=== PATIENT | female | born 1950 | race Two or more races ===

== ENCOUNTER 2022-11-10 06:14 | Inpatient (IN) | payer BC ==
[~2022-11-10] VITALS: Ht 165.1 cm; Wt 71.9 kg
[~2022-11-10 06:14] MED LIST: ATO40T PO; CARV3.1240 PO; FLUT100I IN; GABA400C PO; HYDR25TA4 PO; LOSA-39 PO; MECL12.514 PO; METF-489 PO; TRAM50TA2 PO
[2022-11-10] MEDS ORDERED: ceFAZolin 1GM/50ML 100 ML IV ONE (06:49)
[2022-11-10] MEDS ORDERED: fentaNYL CITRATE 100 MCG/2 ML VL ONE ×2 (07:30→09:07)
[2022-11-10] MEDS ORDERED: DexmedeTOMIDine 200 MCG in D5W 5% 48 ML IV SCH (07:30)
[2022-11-10] MEDS ORDERED: MIDAZOLAM HCL 2MG/2ML 2ml VIAL (1mg/ml) ONE (07:30)
[2022-11-10] MEDS ORDERED: fentaNYL CITRATE 10 ML ONE (07:31)
[2022-11-10] MEDS ORDERED: LIDOCAINE 2%HCL (LOCAL ANESTH.) INJ 10ml MDV ONE (07:32)
[2022-11-10] MEDS ORDERED: LIDOCAINE HCL (LOCAL ANESTH.) 0.5 % 50ML MDV IJ ONE (07:51)
[2022-11-10] MEDS ORDERED: MORPHINE SULF PF 5 MG/10 ML VIAL ONE (09:39)
[2022-11-10] MEDS ORDERED: HYDROmorphone HCL 2 MG/ML VL/or syr ONE (09:40)
[2022-11-10] MEDS ORDERED: LABETALOL HCL 5 MG/ML ML 20ML VIAL IV ONE (09:57)
[2022-11-10] MEDS ORDERED: NALOXONE HCL 0.4 MG/ML VIAL ONE (11:11)
[2022-11-10] MEDS ORDERED: ONDANSETRON HCL 4 MG/2 ML VIAL IV PRN ×2 (11:15→11:45)
[2022-11-10] MEDS ORDERED: HYDROcodone-ACET 10/325MG TAB PO PRN (11:15)
[2022-11-10] MEDS ORDERED: ceFAZolin 1GM/50ML 50 ML IV SCH (11:15)
[2022-11-10] MEDS ORDERED: MILK OF MAGNESIA 30ML SUSP PO PRN (11:15)
[2022-11-10] MEDS ORDERED: DOCUSATE SOD 100 MG CAP PO PRN (11:15)
[2022-11-10] MEDS ORDERED: HYDROmorphone HCL 2 MG/ML VL/or syr IV PRN ×2 (11:45)
[2022-11-10] MEDS ORDERED: HYDROmorphone HCL 2 MG/ML VL/or syr IV ONE ×3 (11:56→12:16)
[2022-11-10] MEDS ORDERED: NITROGLYCERIN 0.4 MG SL TAB SL PRN (12:15)
[2022-11-10] MEDS ORDERED: MORPHINE SULFATE INJ 2 MG/ml SYRG IV PRN (12:15)
[2022-11-10] MEDS: ceFAZolin 1GM/50ML 50 ML IV SCH ×2 (15:28→22:37)
[2022-11-10 17:00] VITALS: BP 147/72
[2022-11-10 17:30] VITALS: BP 147/72
[2022-11-10] MEDS: D5W/SOD CHLO 0.9% 1,000 ML IV SCH ×2 (18:18→21:15)
[2022-11-10] MEDS ORDERED: CYCLOBENZAPRINE HCL 10 MG TAB PO ONE (20:30)
[2022-11-10] MEDS: MORPHINE SULFATE INJ 2 MG/ml SYRG IV PRN (20:49)
[2022-11-10 22:00] VITALS: BP 133/64
[2022-11-10] MEDS: CYCLOBENZAPRINE HCL 10 MG TAB PO SCH (22:00)
[2022-11-10] MEDS ORDERED: hydrALAZINE HCL 20 MG/ML VL IV PRN (22:00)
[2022-11-10] MEDS: CARVEDILOL 3.125 MG TAB PO SCH (22:36)
[2022-11-11] MEDS: MORPHINE SULFATE INJ 2 MG/ml SYRG IV PRN (03:19)
[2022-11-11 05:00] VITALS: BP 152/73
[2022-11-11] MEDS: CYCLOBENZAPRINE HCL 10 MG TAB PO SCH ×3 (06:20→21:27)
[2022-11-11] MEDS: HYDROcodone-ACET 10/325MG TAB PO PRN ×3 (06:40→18:00)
[2022-11-11] MEDS: D5W/SOD CHLO 0.9% 1,000 ML IV SCH ×2 (07:30→10:02)
[2022-11-11 09:00] VITALS: BP 126/53
[2022-11-11] MEDS: CARVEDILOL 3.125 MG TAB PO SCH ×2 (09:59→21:26)
[2022-11-11] MEDS: LOSARTAN POTASSIUM 50 MG TAB PO SCH (10:01)
[2022-11-11] MEDS ORDERED: FLUO10TA3 PO (12:53)
[2022-11-11 13:00] VITALS: BP 130/58
[2022-11-11 17:00] VITALS: BP 136/76
[2022-11-11] MEDS ORDERED: DexAMETHasone INJECTION 10 MG in D5W 5% 50 ML IV ONE (20:00)
[2022-11-11 22:00] VITALS: BP 151/68
[2022-11-11] MEDS ORDERED: CYCLOBENZAPRINE HCL 10 MG TAB PO SCH (22:00)
[2022-11-12] MEDS: HYDROcodone-ACET 10/325MG TAB PO PRN ×4 (00:16→19:51)
[2022-11-12] MEDS: D5W/SOD CHLO 0.9% 1,000 ML IV SCH ×3 (03:15→23:53)
[2022-11-12 05:00] VITALS: BP 138/73
[2022-11-12] MEDS: CYCLOBENZAPRINE HCL 10 MG TAB PO SCH ×3 (05:24→21:13)
[2022-11-12 09:00] VITALS: BP 146/72
[2022-11-12 09:05] LABS: Basophils # (auto) 0 10 ^3/uL (0-0.2); Basophils % (auto) 0.2 % (0.0-2.0); Eosinophils # (auto) 0 10 ^3/uL (0-0.8); Eosinophils % (auto) 0.1 % (0.0-7.0); Hematocrit 38.1 % (36.0-46.0); Hemoglobin 12.8 g/dL (12.2-16.2); Lymphocytes # (auto) 1.2 10 ^3/uL (0.4-5.4); Lymphocytes % (auto) 9.1 % (10.0-50.0); Mean Corpuscular Hemoglobin 32.2 pg (28.0-32.0); Mean Corpuscular Hgb Conc. 33.6 g/dL (32.0-36.0); Mean Corpuscular Volume 95.9 fL (80.0-100.0); Monocytes # (auto) 1.1 10 ^3/uL (0-1.3); Monocytes % (auto) 8.4 % (0.0-12.0); Neutrophils # (auto) 10.9 10 ^3/uL (1.6-8.6); Neutrophils % (auto) 82.2 % (37.0-80.0); Red Blood Cells 3.97 10^6/uL (4.0-5.20); Red Cell Distribution Width 13.1 % (11.8-14.3); White Blood Cell 13.3 10^3/uL (4.4-10.8)
[2022-11-12] MEDS: CARVEDILOL 3.125 MG TAB PO SCH ×2 (09:11→21:14)
[2022-11-12] MEDS: LOSARTAN POTASSIUM 50 MG TAB PO SCH (09:12)
[2022-11-12 09:23] LABS: BUN/Creatinine Ratio 11.3; Calcium 8.6 mg/dL (8.5-10.1); Potassium 3.1 mmol/L (3.5-5.1)
[2022-11-12] MEDS ORDERED: POTASSIUM EFFERVESENT TAB 25 MEQ PO SCH (10:30)
[2022-11-12] MEDS: POTASSIUM CHL 20 Meq TABLET PO SCH ×2 (12:30→16:30)
[2022-11-12 13:00] VITALS: BP 131/89
[2022-11-12] MEDS ORDERED: POTASSIUM CHL 20 Meq TABLET PO SCH (14:00)
[2022-11-12 17:00] VITALS: BP 156/65
[2022-11-12] MEDS ORDERED: DEXTROSE (50%) 50ML SYRG IV PRN (17:30)
[2022-11-12] MEDS ORDERED: hydrALAZINE HCL 20 MG/ML VL IV PRN (17:30)
[2022-11-12] MEDS: MAGNESIUM SULFATE 1GM/100ML 100 ML IV SCH ×2 (18:33→19:53)
[2022-11-12] MEDS: InsuLIN REG 1unit/0.01ml Soln (100units/ml) SC SCH (21:04)
[2022-11-12] MEDS: ACCU-CHEK COMFORT CURVE STRIP VI SCH (21:05)
[2022-11-12 21:52] LABS: BUN/Creatinine Ratio 16.7; Magnesium 2.7 mg/dL (1.6-2.6)
[2022-11-12 22:00] VITALS: BP 146/64
[2022-11-12] MEDS ORDERED: ATORVASTATIN 20 MG TAB PO SCH (22:00)
[2022-11-12 22:22] LABS: Potassium 3.7 mmol/L (3.5-5.1)
[2022-11-13] MEDS: HYDROcodone-ACET 10/325MG TAB PO PRN (01:54)
[2022-11-13 05:00] VITALS: BP 161/86
[2022-11-13] MEDS: CYCLOBENZAPRINE HCL 10 MG TAB PO SCH ×2 (06:05→13:30)
[2022-11-13] MEDS: ACCU-CHEK COMFORT CURVE STRIP VI SCH ×3 (06:09→17:00)
[2022-11-13] MEDS: InsuLIN REG 1unit/0.01ml Soln (100units/ml) SC SCH ×3 (06:09→17:00)
[2022-11-13] MEDS ORDERED: DexAMETHasone INJECTION 10 MG in D5W 5% 50 ML IV ONE (09:00)
[2022-11-13] MEDS: D5W/SOD CHLO 0.9% 1,000 ML IV SCH (09:15)
[2022-11-13] MEDS: CARVEDILOL 3.125 MG TAB PO SCH (09:21)
[2022-11-13] MEDS: LOSARTAN POTASSIUM 50 MG TAB PO SCH (09:22)
[2022-11-13] MEDS ORDERED: FLUoxetine HCL 20 MG CAP PO SCH (10:00)
[2022-11-13 11:25] VITALS: BP 138/98
[2022-11-13 13:00] VITALS: BP 160/87
[2022-11-13 13:31] LABS: Basophils # (auto) 0 10 ^3/uL (0-0.2); Basophils % (auto) 0.2 % (0.0-2.0); Eosinophils # (auto) 0 10 ^3/uL (0-0.8); Eosinophils % (auto) 0.1 % (0.0-7.0); Hematocrit 42.2 % (36.0-46.0); Hemoglobin 14.3 g/dL (12.2-16.2); Lymphocytes # (auto) 1.2 10 ^3/uL (0.4-5.4); Mean Corpuscular Hemoglobin 32.4 pg (28.0-32.0); Mean Corpuscular Hgb Conc. 33.9 g/dL (32.0-36.0); Mean Corpuscular Volume 95.6 fL (80.0-100.0); Monocytes # (auto) 0.6 10 ^3/uL (0-1.3); Monocytes % (auto) 3.7 % (0.0-12.0); Neutrophils # (auto) 15.1 10 ^3/uL (1.6-8.6); Red Blood Cells 4.41 10^6/uL (4.0-5.20); Red Cell Distribution Width 12.9 % (11.8-14.3); White Blood Cell 16.9 10^3/uL (4.4-10.8)
[2022-11-13 15:11] VITALS: BP 160/87
== END 2022-11-13 16:44 | disposition home or self-care (01) | DRG 472 ==
LOC: SUR 06:14 → OVERFLOW 12:03 → TELE 13:22 → TELE-WESTW 17:20 → TELE-EAST 11-11 20:30
PROVIDERS: ADMIT Orthopaedic Surgery; ATTEND Orthopaedic Surgery
PROC: 4A11X4G Monitoring of Peripheral Nervous Electrical Activity, Intraoperative, External Approach (ICD-10-PCS; 2022-11-10)
PROC: 01N10ZZ Release Cervical Nerve, Open Approach (ICD-10-PCS; 2022-11-10)
PROC: 00NW0ZZ Release Cervical Spinal Cord, Open Approach (ICD-10-PCS; 2022-11-10)
PROC: 0RG20A0 Fusion of 2 or more Cervical Vertebral Joints with Interbody Fusion Device, Anterior Approach, Anterior Column, Open Approach (ICD-10-PCS; principal; 2022-11-10 07:39)
DX: M48.02 Spinal stenosis, cervical region (principal); G99.2 Myelopathy in diseases classified elsewhere; D72.829 Elevated white blood cell count, unspecified; E11.9 Type 2 diabetes mellitus without complications; E78.5 Hyperlipidemia, unspecified; E83.42 Hypomagnesemia; E87.6 Hypokalemia; F41.9 Anxiety disorder, unspecified; G62.9 Polyneuropathy, unspecified; I10 Essential (primary) hypertension; F32.9 Major depressive disorder, single episode, unspecified; Z82.0 Family history of epilepsy and other diseases of the nervous system; Z20.822 Contact with and (suspected) exposure to COVID-19; M54.12 Radiculopathy, cervical region; M50.30 Other cervical disc degeneration, unspecified cervical region
CPT/HCPCS: 36415; 72040; 76000; 80048; 82962; 83735; 84484; 85025; 86850; 86900; 86901; 93005; 97163; G0378; J0690; J1100; J2001; J2250; J7060